=== PATIENT | male | born 1985 ===

== ENCOUNTER 2018-08-04 20:33 | Emergency (ER) | payer SELFPAY ==
[2018-08-04 20:43] VITALS: BP 125/79; PULSE 80; RESP 16; TEMP 98.3; O2SAT 98
[2018-08-04] MEDS ORDERED: Lidocaine 1% Inj (20ml) IJ ONE (21:38)
--- NOTE | 2018-08-04 21:46 | ED PDOC ---
Lower Extremity Pain/Injury Time Seen by Provider: 08/04/18 21:01 Chief Complaint (Nursing): Lower Extremity Problem/Injury Chief Complaint (Provider): Left great toe pain History Per: Patient History/Exam Limitations: no limitations Onset/Duration Of Symptoms: Persistent Current Symptoms Are (Timing): Still Present Additional Complaint(s): 33yo male, no past medical history, comes to ER with left great toe pain and swelling x 2 months. Patient states he developed redness and swelling in his right great toe, which was worsening over the past month, and now states he has drainage from the nailbed. He has not taken medications for his symptoms and states he has had an ingrown toe-nail in the same toe. Patient otherwise denies any fever, chills, sweats, numbness or tingling in his foot. Past Medical History Reviewed: Historical Data, Nursing Documentation, Vital Signs Vital Signs: Last Vital Signs Temp 98.3 F 08/04/18 20:41 Pulse 80 08/04/18 20:41 Resp 16 08/04/18 20:41 BP 125/79 08/04/18 20:41 Pulse Ox 98 08/04/18 20:41 - Medical History PMH: No Chronic Diseases - Surgical History Surgical History: No Surg Hx - Family History Family History: States: No Known Family Hx - Home Medications Home Medications: Ambulatory Orders Medication Instructions Recorded Acetaminophen [Tylenol 325mg tab] 650 mg PO Q6 PRN 7 Days tab 08/04/18 Cephalexin [cephalexin] 500 mg PO TID #7 cap 08/04/18 Ibuprofen [Motrin Tab] 600 mg PO Q6 PRN 7 Days tab 08/04/18 - Allergies Allergies/Adverse Reactions: Allergies Allergy/AdvReac Type Severity Reaction Status Date / Time No Known Allergies Allergy Verified 08/04/18 20:41 Review of Systems ROS Statement: Except As Marked, All Systems Reviewed And Found Negative Constitutional: Negative for: Fever, Chills, Sweats Musculoskeletal: Positive for: Other (left great toe pain) Physical Exam - Reviewed Nursing Documentation Reviewed: Yes Vital Signs Reviewed: Yes - Physical Exam Appears: Positive for: Non-toxic, Uncomfortable Head Exam: Positive for: ATRAUMATIC, NORMAL INSPECTION, NORMOCEPHALIC Skin: Positive for: Normal Color Pulses-Dorsalis Pedis (L): 2+ Extremity: Positive for: Normal ROM (FROM left foot and toes), Tenderness (left great toe with erythema, swelling, tenderness and minimal purulent discharge at medial nail bed; no fluctuance or streaking noted.), Capillary Refill (< 2 seconds). Negative for: Deformity, Swelling Neurologic/Psych: Positive for: Alert, Oriented. Negative for: Motor/Sensory Deficits - ECG O2 Sat by Pulse Oximetry: 98 (RA) Pulse Ox Interpretation: Normal Medical Decision Making Medical Decision Making: Impression: 33yo male, with left great toe pain Plan: -- Podiatry consult 2129 Patient evaluated by podiatry resident who will perform procedure. See consult note. 22:15: pt tolerated procedure well ambulating with surgical shoe. Prescription for Keflex given and pt advised to f/u in podiatry clinic in 1 week. Stable for d/c home. Scribe Attestation: Documented by Kristan Santos acting as a scribe for RUY Oneil. Provider Attestation: All medical record entries made by the Scribe were at my direction and personally dictated by me. I have reviewed the chart and agree that the record accurately reflects my personal performance of the history, physical exam, medical decision making, and the department course for this patient. I have also personally directed, reviewed, and agree with the discharge instructions and disposition. Disposition - Clinical Impression Clinical Impression: Infected nailbed of toe - Patient ED Disposition Is Patient to be Admitted: No - Disposition Referrals: Podiatry Clinic [Outside] Disposition: Routine/Home Disposition Time: 22:54 Condition: STABLE Additional Instructions: F/u in podiatry clinic in 1 week. Keep dressing clean and dry for 24hrs and then remove dressing and clean area gently with soap and water. Soak your foot in Epsom salt daily and place Bacitracin on the area. Use Ibuprofen or Tylenol for pain. Use surgical shoe until f/u in podiatry. Prescriptions: Acetaminophen [Tylenol 325mg tab] 650 mg PO Q6 PRN 7 Days tab PRN Reason: Pain, Moderate (4-7) Cephalexin [cephalexin] 500 mg PO TID #7 cap Ibuprofen [Motrin Tab] 600 mg PO Q6 PRN 7 Days tab PRN Reason: Pain, Moderate (4-7) Instructions: Cellulitis (Skin Infection), Adult (DC) Forms: [employer] (Citizen Of [place]), [facility] ED School/Work Excuse Print Language: POLISH
--- NOTE | 2018-08-04 22:26 | CP.PCM.CON ---
History of Present Illness - History of Present Illness History of Present Illness: Podiatry consult note for attending Dr. Arechiga 33 year old male with no past medical history seen and evaluated in the ED for left big toe pain and swelling. Patient states that his left big toe in painful specially from the outer border. 8/10 on VAS scale. Patient states that he had partial toe nail avulsion last year but the nail started to in grow again into the flesh. Patient states that 2 days ago the left big toe got more swollen and more painful and started to drain pus. Patient denies having any other pedal complaints. he denies any recent F/N/V/C or SOB. PMH: None. PSH: None. Allergies: NKDA. Review of Systems - Review of Systems Review of Systems: As per HPI - Constitutional Constitutional: As Per HPI Meds Home Medications: Home Medication List Medication Instructions Recorded Confirmed Type Acetaminophen [Tylenol 325mg tab] 650 mg PO Q6 PRN 7 Days tab 08/04/18 Rx Cephalexin [cephalexin] 500 mg PO TID #7 cap 08/04/18 Rx Ibuprofen [Motrin Tab] 600 mg PO Q6 PRN 7 Days tab 08/04/18 Rx Allergies/Adverse Reactions: Allergies Allergy/AdvReac Type Severity Reaction Status Date / Time No Known Allergies Allergy Verified 08/04/18 20:41 Physical Exam - Constitutional Appears: Well, Non-toxic, No Acute Distress - Head Exam Head Exam: ATRAUMATIC, NORMOCEPHALIC - Extremities Exam Additional comments: L LE focused exam : Vasc: DP/PT 2/4. Cap refill < 3 sec to all digits. Temp gradient warm to cool from proximal to distal. Mild non pitting edema noted at the left big toe. Neuro: Gross and protective sensations are intact. Derm: No open lesions, No clinical signs of active infection. L Hallucal toe nail is ingrowing into the lateral nail fold with infected granulation tissue formed at the lateral nail fold MSK: Muscle power intact 5/5 b/l.Pain on palpating the Left hallux. Muscle power intact 5/5 to all groups - Neurological Exam Neurological exam: Alert, Oriented x3 - Psychiatric Exam Psychiatric exam: Normal Affect, Normal Mood Results - Vital Signs Recent Vital Signs: Last Vital Signs Temp 98.3 F 08/04/18 20:41 Pulse 80 08/04/18 20:41 Resp 16 08/04/18 20:41 BP 125/79 08/04/18 20:41 Pulse Ox 98 08/04/18 21:49 Assessment & Plan - Assessment and Plan (Free Text) Assessment: 33 y/o M patient seen and evaluated in the ED for Left hallux infected ingrowing toe nail. Plan: Patient was seen and examined in the ED Plan discussed with attending Dr. Arechiga assistant plant controller used for translation. Charts and vitals reviewed; Afebrile Explained to the patient the need to do partial nail avulsion and to drain the pus from the nails fold Benefits, risks and possible complication of the procedure explaint to the patient. Patient expressed verbal understanding. Patient agreed to do the procedure. Patient signed informed consent. Using 7 cc of lidocaine 1% (Lot [id number], EXP 17 Apr 2020). Left hallux was blocked in a ring block fashion. Under sterile condition, Using sterile nail avulsion kit. Lateral border of the left hallux toe nail partially avulsed. Patient tolerated the procedure well with no complication. Applied bacitracin to the left hallux lateral border and then dressed with betadine, DSD and Carter bandage Patient instructed to soak his left foot in Epson salt each day. Patient instructed to apply bacitracin to his left hallux eachd ay and to dress it using DSD. Patient instructed to ambulate in a surgical shoe to her left foot Rx; Keflex 500 mg tablets PO Q8 for 7 days. Patient expressed verbal understanding Patient will follow-up at the podiatry clinic. - Date & Time Date: 08/04/18 Time: 22:18
== END 2018-08-04 22:32 | disposition home or self-care (01) ==
LOC: H.ER 20:33
DX: L60.0 Ingrowing nail (principal); L03.039 Cellulitis of unspecified toe